=== PATIENT | female | born 2000 ===

== ENCOUNTER 2018-08-20 10:26 | Outpatient (RCR) | payer OTHER, SELFPAY ==
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
== END 2018-08-21 12:07 ==
LOC: PHYS 10:26
PROVIDERS: PCP Obstetrics & Gynecology; Visit Provider Obstetrics & Gynecology
DX: R10.2 Pelvic and perineal pain (principal)
CPT/HCPCS: 97162